=== PATIENT | male | born 1995 | race Two or more races ===

== ENCOUNTER 2019-05-20 22:25 | Emergency (ER) | payer SELFPAY ==
[2019-05-20] MEDS ORDERED: Lidocaine 2% Viscous Solution 15 ML Cup PO ONE (22:26)
[2019-05-20] MEDS ORDERED: traMADol 50 MG Tab PO ONE (22:44)
[2019-05-20] MEDS ORDERED: Clindamycin HCl 150 MG Cap PO ONE (22:44)
--- NOTE | 2019-05-20 22:50 | EDM.PDOC ---
ED HPI GENERAL MEDICAL PROBLEM - General Chief Complaint: ENT Problem Stated Complaint: TOOTH PAIN Time Seen by Provider: 05/20/19 22:47 Source of Information: Reports: Patient History Limitations: Reports: No Limitations - History of Present Illness INITIAL COMMENTS - FREE TEXT/NARRATIVE: broke left upper back molar 2 weeks ago. getting worse with pain. Treatments REVENUE TAX SPECIALIST: Reports: Acetaminophen, NSAIDS, Other (see below) Other Treatments REVENUE TAX SPECIALIST: oragel Left Upper Tooth/Teeth Pain Score (Numeric/FACES): 9 Past Medical History - Past Health History Medical/Surgical History: Denies Medical/Surgical History Psychiatric History: Reports: Anxiety, Depression - Past Surgical History Musculoskeletal Surgical History: Reports: Other (See Below) Other Musculoskeletal Surgeries/Procedures:: ankle surgery Social & Family History - Family History Family Medical History: Noncontributory ED ROS ENT - Review of Systems Review Of Systems: Comprehensive ROS is negative, except as noted in HPI. ED EXAM, ENT - Physical Exam Exam: See Below Exam Limited By: No Limitations General Appearance: Alert, WD/WN, Mild Distress, Other (discomfort) Ears: Hearing Grossly Normal Mouth/Throat: Dental Abcess, Dental Pain, Dental Tenderness, Other (dental collapse) Head: Atraumatic Neck: Non-Tender, Lymphadenopathy (R) Respiratory/Chest: No Respiratory Distress Cardiovascular: Regular Rate, Rhythm GI/Abdominal: Soft, Non-Tender Neurological: Alert, Oriented, Normal Cognition, Normal Gait, No Motor/Sensory Deficits Psychiatric: Flat Affect, Tearful Skin: Warm, Dry, Normal Color Lymphatic: No Adenopathy Course - Vital Signs Last Recorded V/S: Last Vital Signs Temp 36.1 C 05/20/19 22:34 Pulse 95 05/20/19 22:34 Resp 16 05/20/19 22:34 BP 135/97 H 05/20/19 22:34 Pulse Ox 97 05/20/19 22:34 - Orders/Labs/Meds Meds: Medications Discontinued Medications Generic Name Dose Route Start Last Admin Trade Name Thao PRN Reason Stop Dose Admin Clindamycin HCl 300 mg 05/20/19 22:44 Cleocin PO 05/20/19 22:45 ONETIME ONE Tramadol HCl 50 mg 05/20/19 22:44 Ultram PO 05/20/19 22:45 ONETIME ONE Departure - Departure Time of Disposition: 22:49 Disposition: Home, Self-Care 01 Condition: Good Clinical Impression: Dental abscess, Dental caries - Discharge Information Instructions: Dental Abscess, [id number] Additional Instructions: 1) avoid solid foods 2) see dentist rx togo; lidocaine viscous prn rx given; clindamycin 300mg qid x 40 tramdol 50 mg bid prn x 6 Sepsis Event Note - Evaluation Sepsis Screening Result: No Definite Risk - Focused Exam Vital Signs: Vital Signs Temp Pulse Resp BP Pulse Ox 05/20/19 22:34 36.1 C 95 16 135/97 H 97 Date Exam was Performed: 05/20/19 Time Exam was Performed: 22:47
[2019-05-20] MEDS ORDERED: Lidocaine 2% Viscous Solution 15 ML Cup ONE (22:51)
== END 2019-05-20 23:01 | disposition home or self-care (01) ==
LOC: DL.ED 22:25
DX: K04.7 Periapical abscess without sinus (principal); K02.9 Dental caries, unspecified
CPT/HCPCS: 99282; A9270; 99283